=== PATIENT | female | born 1970 ===

== ENCOUNTER 2017-05-29 13:16 | Inpatient (IN) | payer OTHER ==
[~2017-05-29] VITALS: Ht 160 cm; Wt 79.8 kg
[2017-05-29] MEDS ORDERED: ENALAPRIL MALEA20 MG PO (13:59)
== END 2017-06-02 11:05 | disposition home or self-care (01) | DRG 473 ==
LOC: O/R 06-01 06:00 → SURH 06-01 07:00 → PED 06-01 16:27
PROVIDERS: Orthopaedic Surgery
PROC: 0RG20A0 Fusion of 2 or more Cervical Vertebral Joints with Interbody Fusion Device, Anterior Approach, Anterior Column, Open Approach (ICD-10-PCS; 2017-06-01)
PROC: 0RT30ZZ Resection of Cervical Vertebral Disc, Open Approach (ICD-10-PCS; principal; 2017-06-01 07:00)
DX: M50.20 Other cervical disc displacement, unspecified cervical region (principal); M50.30 Other cervical disc degeneration, unspecified cervical region; M48.02 Spinal stenosis, cervical region